=== PATIENT | female | born 1960 | race Caucasian/White ===

== ENCOUNTER 2023-03-05 07:26 | Outpatient (CLI) | payer OTHER ==
[2023-03-05 12:10] LABS: BASOPHILS # (AUTO) 0.1 10^3/uL (0.0-0.1); BASOPHILS % (AUTO) 1.2 %; EOSINOPHILS # (AUTO) 0.3 10^3/uL (0.0-0.7); EOSINOPHILS % (AUTO) 4.3 %; HCT - HEMATOCRIT 40.2 % (37.0-47.0); HGB - HEMOGLOBIN 12.8 g/dL (12.0-16.0); LYMPHOCYTES # (AUTO) 2.1 10^3/uL (1.5-3.5); LYMPHOCYTES % (AUTO) 34.5 %; MEAN CORPUSCULAR HEMOGLOBIN 28.8 pg (27.0-31.0); MEAN CORPUSCULAR HGB CONC 31.8 g/dL (32.0-36.0); MEAN CORPUSCULAR VOLUME 90.5 fL (81.0-99.0); MEAN PLATELET VOLUME 11.8 fL (7.9-10.8); MONOCYTES # (AUTO) 0.4 10^3/uL (0.0-1.0); MONOCYTES % (AUTO) 7.2 %; NEUTROPHILS # (AUTO) 3.2 10^3/uL (1.5-6.6); NEUTROPHILS % (AUTO) 52.6 %; PLT - PLATELET COUNT 310 10^3/uL (130-450); RED BLOOD COUNT 4.44 10^6/uL (4.20-5.40); RED CELL DISTRIBUTION WIDTH 14.4 % (12.0-15.0); WHITE BLOOD COUNT 6.1 x10^3/uL (4.8-10.8)
[2023-03-05 12:13] LABS: HCG UR QUAL NEGATIVE
[2023-03-05 12:23] LABS: ALBUMIN 4.4 g/dL (3.2-5.5); ALBUMIN/GLOBULIN RATIO 1.6 (1.0-2.2); BILIRUBIN,TOTAL 0.3 mg/dL (0.2-1.0); CALCIUM 10.1 mg/dL (8.5-10.3); CREATININE 0.8 mg/dL (0.6-1.3); POTASSIUM 3.6 mmol/L (3.5-4.5); TOTAL PROTEIN 7.1 g/dL (6.4-8.9)
== END 2023-03-05 07:27 | disposition home or self-care (01) ==
LOC: LAB.N 07:26
PROVIDERS: ATTEND Obstetrics & Gynecology
DX: Z01.812 Encounter for preprocedural laboratory examination (principal); N95.0 Postmenopausal bleeding
CPT/HCPCS: 36415; 80053; 81025; 85025

== ENCOUNTER 2023-03-10 09:51 | Day surgery (SDC) | payer OTHER ==
[2023-03-10] MEDS ORDERED: LACTATED RINGERS 1,000 ML IV ONE (10:03)
--- NOTE | 2023-03-10 12:08 | ANESTHESIA ---
Pre-Anesthesia VS, & Labs - Diagnosis post menopausal bleeding - Procedure D&C, hysteroscopy Vital Signs: Temp Pulse Resp BP Pulse Ox O2 Flow Rate 36.6 C 64 16 136/75 H 98 03/10/23 10:04 03/10/23 10:04 03/10/23 10:04 03/10/23 10:04 03/10/23 10:04 Height: 5 ft 6 in Weight (kg): 58.1 kg Body Mass Index: 20.7 BMI Classification: Normal - NPO >8 hours - Is Patient ?: No - Lab Results Lab results reviewed: Yes Home Medications and Allergies Home Medications: Ambulatory Orders Calcium Carbonate [Calcium] 600 mg PO DAILY 03/03/23 Cholecalciferol [Vitamin D3] 25 mcg PO DAILY 03/03/23 Lactobacillus Combination No.4 [Probiotic] 1 each PO DAILY 03/03/23 Lisinopril [Zestril] 20 mg PO DAILY 03/03/23 Multivitamin 1 each PO DAILY 03/03/23 Vitamin B Complex Vit C No.3 [B Complex with Vitamin C] 1 each PO DAILY 03/03/23 Calcium Carbonate [Calcium] 600 mg PO DAILY 03/03/23 Cholecalciferol [Vitamin D3] 25 mcg PO DAILY 03/03/23 Lactobacillus Combination No.4 [Probiotic] 1 each PO DAILY 03/03/23 Lisinopril [Zestril] 20 mg PO DAILY 03/03/23 Multivitamin 1 each PO DAILY 03/03/23 Vitamin B Complex Vit C No.3 [B Complex with Vitamin C] 1 each PO DAILY 03/03/23 Allergies/Adverse Reactions: Allergies Allergy/AdvReac Type Severity Reaction Status Date / Time bacitracin Allergy Rash Verified 03/03/23 15:03 [From Neosporin ([id number])] neomycin Allergy Rash Verified 03/03/23 15:03 [From Neosporin ([id number])] polymyxin B Allergy Rash Verified 03/03/23 15:03 [From Neosporin ([id number])] aspirin AdvReac Nausea Verified 03/03/23 15:02 oxycodone AdvReac severe Verified 03/03/23 15:02 nausea, dizziness chocolate Allergy migraine Uncoded 03/03/23 15:04 Anes History & Medical History - Anesthetic History Anesthesia Complications: reports: Post-Operative Nausea/Vomiting Family history of Anesthesia Complications: Denies Family history of Malignant Hyperthermia: Denies - Medical History Cardiovascular: reports: Hypertension, Other Pulmonary: reports: None Gastrointestinal: reports: None Urinary: reports: None Musculoskeletal: reports: Osteoarthritis Endocrine/Autoimmune: reports: None Skin: reports: None - Surgical History General: reports: Colonoscopy Gynecologic: reports: Dilation and currettage, Tubal ligation Orthopedic: reports: Other Exam General: Alert, Oriented x3, Cooperative Dental: WNL Mouth Openin Fingerbreadth Neck Mobility: Normal Mallampati classification: II Thyromental Distance: 4-6 cm Respiratory: Lungs clear, Normal breath sounds, No respiratory distress Cardiovascular: Regular rate Neurological: Normal speech Mental/Cognitive Status: Alert/Oriented X3, Normal for patient Cognitive Status: Within normal limits Plan Anesthesia Type: General, MAC, Total IV Consent for Procedure(s) Verified and Reviewed: Yes Code Status: Attempt Resuscitation ASA classification: 2-Mild systemic disease Is this case an emergency?: No
[2023-03-10] MEDS ORDERED: fentaNYL 100 MCG/2 ML VIAL ONE (12:13)
[2023-03-10] MEDS ORDERED: MIDAZOLAM 2 MG/2 ML VIAL ONE (12:13)
[2023-03-10] MEDS ORDERED: PROPOFOL 200 MG/20 ML VIAL IVP ONE (12:15)
[2023-03-10] MEDS ORDERED: DEXAMETHASONE 4 MG/ML VIAL ONE (12:51)
[2023-03-10] MEDS ORDERED: ONDANSETRON 4 MG/2 ML VIAL ONE (12:51)
[2023-03-10] MEDS ORDERED: METOCLOPRAMIDE 10 MG/2 ML VIAL IVP PRN (13:01)
[2023-03-10] MEDS ORDERED: ONDANSETRON 4 MG/2 ML VIAL IVP PRN (13:01)
[2023-03-10] MEDS ORDERED: HYDROmorphone 0.5 MG/0.5 ML SYRINGE IVP PRN (13:01)
[2023-03-10] MEDS ORDERED: ePHEDrine 50 MG/ML VIAL IVP PRN (13:01)
[2023-03-10] MEDS ORDERED: fentaNYL 100 MCG/2 ML VIAL IVP PRN (13:01)
[2023-03-10] MEDS ORDERED: NALOXONE 0.4 MG/ML VIAL IVP PRN (13:01)
[2023-03-10] MEDS ORDERED: ATROPINE ABBOJECT 1 MG/10 ML SYRINGE IVP PRN (13:01)
[2023-03-10] MEDS ORDERED: miSOPROStoL 200 MCG TABLET ONE (13:19)
[2023-03-10] MEDS ORDERED: GLYCOPYRROLATE 1 MG/5 ML VIAL ONE (13:21)
[2023-03-10] MEDS ORDERED: LACTATED RINGERS 600 ML IV ONE (13:40)
--- NOTE | 2023-03-10 13:43 | OPERATIVE REPORT ---
Operative Report - General Procedure Date: 03/10/23 Planned Procedure: dilation, hysteroscopy, curetage, possible polypectomy Pre-Op Diagnosis: post menopausal bleeding, thickened endometrium, suspect endometrial polyp Procedure Performed: dilation of cervix, hysteroscopy that revealed uterine perforation, of procedure Post Op Diagnosis: same as above - Procedure Note Primary Surgeon: clark Anesthesia Provider: ann santana Anesthesia Technique: General LMA Pathology: none IV Fluids (mL): 500 Estimated Blood Loss (mL): 5 Urine Output (mL): 0 Findings: found ourselves in the pelvis instead of the uterus Complications: uterine perforation - Other Other Information/Narrative: OPERATIVE NOTE Pre-operative diagnosis: 1. Post menopausal bleeding 2. Thickened endometrium 3. suspect Endometrial polyp Procedure: Attempted: Diagnostic hysteroscopy, dilation and curettage, polypectomy Actual procedure: dilation of false channel through cervix, uterine perforation. Post-operative diagnosis: LILIBETH Surgeon: Clark Payloader Machine Operator: None Anesthesia: LMA Findings: EUA: small uterus, no adnexal masses, normal cervix Speculum: normal vagina, normal cervix Hysteroscope: tunnel into pelvis, yellow of epiploica visualized. Specimen: none Complications: Uterine perforation EBL: minimal Hysteroscopic fluid in: 900 Hysteroscopic fluid out: 300 UOP: none, pt voided prior to case Dispo: Pt to PACU in stable condition Procedure in detail: After risks benefits and alternatives, as well as indication for procedure and anticipated post-operative recovery course, were discussed with the patient informed consent was obtained and patient was taken to the operating theater where general anesthesia with LMA was administered without complication. Pt placed in dorsal lithotomy position, SCDs in place and running, and bimanual exam revealed the aforementioned findings. Seth speculum placed in posterior vagina, and anterior lip of cervix grasped with ring forces, then single tooth, then posterior lip grasped with single tooth. Cervix dilated to accomodate 5.5mm hysteroscope. hysteroscope then entered without difficulty and it became apparent that instead of dilating the cervix we had created a false passage / uterine perforation. Suspect that it is on the posterior uterine wall, near to the internal os. aforementioned findings noted - being bowel. hysteroscope removed. Case aborted. Will check CBC in PACU and another CBC after 2-4 hours. All counts correct. Pt awaked from anesthesia. Pt to PACU in stable condition. Events of procedure discussed with patient. All questions answered.
[2023-03-10] MEDS ORDERED: LACTATED RINGERS 1,000 ML IV SCH (14:00)
[2023-03-10 14:01] LABS: HCT - HEMATOCRIT 41.2 % (37.0-47.0); HGB - HEMOGLOBIN 13.4 g/dL (12.0-16.0); MEAN CORPUSCULAR HEMOGLOBIN 29.1 pg (27.0-31.0); MEAN CORPUSCULAR HGB CONC 32.5 g/dL (32.0-36.0); MEAN CORPUSCULAR VOLUME 89.4 fL (81.0-99.0); MEAN PLATELET VOLUME 10.8 fL (7.9-10.8); RED BLOOD COUNT 4.61 10^6/uL (4.20-5.40); RED CELL DISTRIBUTION WIDTH 14.6 % (12.0-15.0)
--- NOTE | 2023-03-10 14:06 | ANESTHESIA POST OP EVALUATION ---
Anesthesia Post Eval - Post Anesthesia Eval Vitals: Last Vital Signs Temp 36.4 C L 03/10/23 14:00 Pulse 80 03/10/23 14:00 Resp 18 03/10/23 14:00 BP 157/88 H 03/10/23 14:00 Pulse Ox 93 03/10/23 14:00 O2 Flow Rate CV Function Including HR & BP: Stable Pain Control: Satisfactory Nausea & Vomiting: Negative Mental Status: Baseline Respiratory Status: Airway Patent Hydration Status: Satisfactory Anesthesia Complications: None - Other Details/Therapies Other Details/Therapies: Drawing series CBC 2 hours apart to assess for possible bleeding r/t probable perforation.
[2023-03-10] MEDS ORDERED: ACETAMINOPHEN 500 MG TABLET PO STA (14:16)
[2023-03-10 15:11] VITALS: BP 158/88; O2SAT 97
[2023-03-10 15:17] LABS: HCT - HEMATOCRIT 42.1 % (37.0-47.0); HGB - HEMOGLOBIN 13.5 g/dL (12.0-16.0); MEAN CORPUSCULAR HEMOGLOBIN 28.9 pg (27.0-31.0); MEAN CORPUSCULAR HGB CONC 32.1 g/dL (32.0-36.0); MEAN CORPUSCULAR VOLUME 90.1 fL (81.0-99.0); MEAN PLATELET VOLUME 10.5 fL (7.9-10.8); RED BLOOD COUNT 4.67 10^6/uL (4.20-5.40); RED CELL DISTRIBUTION WIDTH 14.6 % (12.0-15.0); WHITE BLOOD COUNT 7.7 x10^3/uL (4.8-10.8)
== END 2023-03-10 09:52 | disposition home or self-care (01) ==
LOC: SDS 09:51
PROVIDERS: ATTEND Obstetrics & Gynecology
DX: N95.0 Postmenopausal bleeding (principal); R93.89 Abnormal findings on diagnostic imaging of other specified body structures; I10 Essential (primary) hypertension; N99.71 Accidental puncture and laceration of a genitourinary system organ or structure during a genitourinary system procedure; S37.63XA Laceration of uterus, initial encounter; Y65.8 Other specified misadventures during surgical and medical care; Y92.234 Operating room of hospital as the place of occurrence of the external cause
CPT/HCPCS: 36415; 58558; 85027; A9270; J7120

== ENCOUNTER 2023-04-21 07:10 | Outpatient (CLI) | payer OTHER ==
[2023-04-21 11:54] LABS: HCT - HEMATOCRIT 38.7 % (37.0-47.0); HGB - HEMOGLOBIN 12.7 g/dL (12.0-16.0); MEAN CORPUSCULAR HGB CONC 32.8 g/dL (32.0-36.0); MEAN CORPUSCULAR VOLUME 88.4 fL (81.0-99.0); RED BLOOD COUNT 4.38 10^6/uL (4.20-5.40); RED CELL DISTRIBUTION WIDTH 14.4 % (12.0-15.0); WHITE BLOOD COUNT 5.8 x10^3/uL (4.8-10.8)
[2023-04-21 11:56] LABS: BILIRUBIN,URINE NEGATIVE (NEGATIVE); GLUCOSE, URINE (UA) NEGATIVE (NEGATIVE); KETONES,URINE (UA) NEGATIVE (NEGATIVE); LEUKOCYTE ESTERASE, URINE NEGATIVE (NEGATIVE); NITRITE,URINE NEGATIVE (NEGATIVE); OCCULT BLOOD,URINE NEGATIVE (NEGATIVE); PROTEIN,URINE NEGATIVE (NEGATIVE); UROBILINOGEN,URINE 0.2 (NORMAL) E.U./dL (NORMAL)
[2023-04-21 12:05] LABS: BACTERIA,URINE None Seen /HPF (None Seen); CLARITY,URINE CLEAR (CLEAR); RBC,URINE None Seen /HPF (0-5); SQUAMOUS EPITHELIAL CELL,UR NONE SEEN (<= Few); WBC,URINE 0-3 /HPF (0-5)
== END 2023-04-21 07:11 | disposition home or self-care (01) ==
LOC: LAB.N 07:10
PROVIDERS: ATTEND Obstetrics & Gynecology
DX: Z01.812 Encounter for preprocedural laboratory examination (principal); R93.89 Abnormal findings on diagnostic imaging of other specified body structures; S37.69XA Other injury of uterus, initial encounter; N95.0 Postmenopausal bleeding
CPT/HCPCS: 36415; 81001; 85027

== ENCOUNTER 2023-04-23 08:17 | Day surgery (SDC) | payer OTHER ==
[2023-04-23] MEDS ORDERED: LACTATED RINGERS 1,000 ML IV ONE ×2 (08:47→11:58)
--- NOTE | 2023-04-23 09:16 | ANESTHESIA ---
Pre-Anesthesia VS, & Labs - Diagnosis thickened endometrium, s/p uterine peforation 1 month ago in same procedure - Procedure hysteroscopy D&C, polypectomy under US Vital Signs: Temp Pulse Resp BP Pulse Ox O2 Flow Rate 36.2 C L 61 18 150/79 H 100 0 04/23/23 08:47 04/23/23 08:47 04/23/23 08:47 04/23/23 08:47 04/23/23 08:47 04/23/23 08:47 Height: 5 ft 6 in Weight (kg): 58.8 kg Body Mass Index: 20.9 BMI Classification: Normal - NPO >8 hours - Is Patient ?: No - Lab Results Lab results reviewed: Yes Home Medications and Allergies Calcium Carbonate [Calcium] 600 mg PO DAILY 03/03/23 Cholecalciferol [Vitamin D3] 25 mcg PO DAILY 03/03/23 Lactobacillus Combination No.4 [Probiotic] 1 each PO DAILY 03/03/23 Lisinopril [Zestril] 20 mg PO DAILY 03/03/23 Multivitamin 1 each PO DAILY 03/03/23 Vitamin B Complex Vit C No.3 [B Complex with Vitamin C] 1 each PO DAILY 03/03/23 Allergies/Adverse Reactions: Allergies Allergy/AdvReac Type Severity Reaction Status Date / Time bacitracin Allergy Rash Verified 04/23/23 08:31 [From Neosporin ([id number])] neomycin Allergy Rash Verified 04/23/23 08:31 [From Neosporin ([id number])] polymyxin B Allergy Rash Verified 04/23/23 08:31 [From Neosporin ([id number])] aspirin AdvReac Nausea Verified 04/23/23 08:31 oxycodone AdvReac severe Verified 04/23/23 08:31 nausea, dizziness chocolate Allergy migraine Uncoded 04/23/23 08:31 Anes History & Medical History - Anesthetic History Anesthesia Complications: reports: Post-Operative Nausea/Vomiting (has used zofran for every GA, no N/V since first surgery) Family history of Anesthesia Complications: Denies Family history of Malignant Hyperthermia: Denies - Medical History Cardiovascular: reports: Hypertension, Other Pulmonary: reports: None Gastrointestinal: reports: None Urinary: reports: None Musculoskeletal: reports: Osteoarthritis Endocrine/Autoimmune: reports: None Skin: reports: None History of Cancer?: No - Surgical History General: reports: Colonoscopy Gynecologic: reports: Dilation and currettage, Tubal ligation Orthopedic: reports: Other Exam General: Alert, Oriented x3, Cooperative Dental: WNL Mouth Openin Fingerbreadth Neck Mobility: Normal Mallampati classification: II Respiratory: Lungs clear, Normal breath sounds, No respiratory distress Cardiovascular: Regular rate Neurological: Normal speech Mental/Cognitive Status: Alert/Oriented X3, Normal for patient Plan Anesthesia Type: General Consent for Procedure(s) Verified and Reviewed: Yes Code Status: Attempt Resuscitation ASA classification: 2-Mild systemic disease Is this case an emergency?: No
[2023-04-23] MEDS ORDERED: ONDANSETRON 4 MG/2 ML VIAL IVP PRN (09:17)
[2023-04-23] MEDS ORDERED: METOCLOPRAMIDE 10 MG/2 ML VIAL IVP PRN (09:17)
[2023-04-23] MEDS ORDERED: ATROPINE ABBOJECT 1 MG/10 ML SYRINGE IVP PRN (09:17)
[2023-04-23] MEDS ORDERED: ePHEDrine 50 MG/ML VIAL IVP PRN (09:17)
[2023-04-23] MEDS ORDERED: HYDROmorphone 0.5 MG/0.5 ML SYRINGE IVP PRN (09:17)
[2023-04-23] MEDS ORDERED: fentaNYL 100 MCG/2 ML VIAL IVP PRN (09:17)
[2023-04-23] MEDS ORDERED: NALOXONE 0.4 MG/ML VIAL IVP PRN (09:17)
[2023-04-23] MEDS ORDERED: MORPHINE 2 MG/ML CARPUJECT IVP PRN (09:17)
[2023-04-23 09:22] LABS: ALBUMIN 4.3 g/dL (3.2-5.5)
[2023-04-23 09:24] LABS: ALBUMIN/GLOBULIN RATIO 1.5 (1.0-2.2); BILIRUBIN,TOTAL 0.4 mg/dL (0.2-1.0); CALCIUM 9.4 mg/dL (8.5-10.3); CREATININE 0.8 mg/dL (0.6-1.3); POTASSIUM 3.6 mmol/L (3.5-4.5); TOTAL PROTEIN 7.1 g/dL (6.4-8.9)
[2023-04-23] MEDS ORDERED: LACTATED RINGERS 1,000 ML IV SCH (10:00)
[2023-04-23] MEDS ORDERED: SILVER NITRATE APPLICATOR TOP ONE ×2 (10:05→10:52)
[2023-04-23] MEDS ORDERED: PROPOFOL 200 MG/20 ML VIAL IVP ONE (10:07)
[2023-04-23] MEDS ORDERED: MIDAZOLAM 2 MG/2 ML VIAL ONE (10:07)
[2023-04-23] MEDS ORDERED: fentaNYL 100 MCG/2 ML VIAL ONE (10:07)
[2023-04-23] MEDS ORDERED: ONDANSETRON 4 MG/2 ML VIAL ONE (10:41)
[2023-04-23] MEDS ORDERED: DEXAMETHASONE 4 MG/ML VIAL ONE (10:41)
[2023-04-23] MEDS ORDERED: KETOROLAC 15 MG/ML VIAL ONE (12:00)
--- NOTE | 2023-04-23 12:09 | Ultrasound Report ---
PROCEDURE: Pelvic Limited INDICATIONS: in OR TECHNIQUE: Real-time transabdominal scanning was performed of the pelvic organs, with image documentation. COMPARISON: None. FINDINGS: Limited sonographic imaging of the uterus was performed intraoperatively. Endometrial stripe measures 7 mm diameter. Ovaries were not identified. IMPRESSION: Intraoperative imaging as above. Reviewed by: Ayden Saavedra MD on 04/23/2023 12:07 PM [facility] Approved by: Ayden Saavedra MD on 04/23/2023 12:07 PM [facility] Station ID: [id number]
[2023-04-23] MEDS ORDERED: ACETAMINOPHEN 500 MG TABLET PO ONE ×2 (12:52→12:53)
[2023-04-23 12:56] VITALS: BP 149/90; O2SAT 97
--- NOTE | 2023-04-23 13:02 | ANESTHESIA POST OP EVALUATION ---
Anesthesia Post Eval - Post Anesthesia Eval Vitals: Last Vital Signs Temp 36.4 C L 04/23/23 12:46 Pulse 74 04/23/23 12:46 Resp 16 04/23/23 12:46 BP 149/90 H 04/23/23 12:46 Pulse Ox 97 04/23/23 12:46 O2 Flow Rate 0 04/23/23 08:47 CV Function Including HR & BP: Stable Pain Control: Satisfactory Nausea & Vomiting: Negative Mental Status: Baseline Respiratory Status: Airway Patent Hydration Status: Satisfactory Anesthesia Complications: None
--- NOTE | 2023-04-23 13:03 | OPERATIVE REPORT ---
Operative Report - General Procedure Date: 04/23/23 - Other Other Information/Narrative: OPERATIVE NOTE Pre-operative diagnosis: 1. Post Menopausal Bleeding 2. Thickened endometrium 3. h/o uterine perforation with prior hysteroscopy Procedure: Diagnostic hysteroscopy under ultrasound guidance, dilation and curettage, polypectomy Post-operative diagnosis: LILIBETH Surgeon: Clark Assembler Faucets: Glen for assistance with retraction and visualization Anesthesia: LMA Findings: EUA: small uterus, no adnexal masses, normal cervix, lichen apparent posterior fornyx Speculum: normal vagina, normal cervix, atophy Ultrasound: affirms small uterus Hysteroscope: false passage seen hysteroscope removed slowly until correct cervical passage seen, and then used guide wire to insert the hysteroscope in the correct endocervical path then, polyp seen on anterior uterine wall, and normal ostea B/L, atophy present. attempted curretage with myosure, scant curretage done and possible 2'2 atrophy. normal fundus polyp removed with myosure normal endocervical canal Specimen: endometrial curettage & polyp Complications: None apparent EBL: minimal Hysteroscopic fluid deficit: 600cc NS UOP: none, pt voided prior to case Dispo: Pt to PACU in stable condition Procedure in detail: After risks benefits and alternatives, as well as indication for procedure and anticipated post-operative recovery course, were discussed with the patient informed consent was obtained and patient was taken to the operating theater where general anesthesia with LMA was administered without complication. Pt placed in dorsal lithotomy position, SCDs in place and running, and bimanual exam revealed the aforementioned findings. Seth speculum placed in posterior vagina, and anterior lip of cervix grasped with tenaculum. Cervix dilated to accomodate 5.5mm hysteroscope. hysteroscope then entered without difficulty. aforementioned findings noted, hysteroscope repositined away from false passage and into endocervical canal under direct visualization. polyp and ostea seen. polyp forceps used to attempt to remove polyp, unsuccessful. hysteroscope exchanged for myosure. Polyp then successfully removed in entirety, and curretage done with some success with myosure. Myosure and all instruments removed from vagina. Silver nitrate applied on tenaculum site. All counts correct. Pt awaked from anesthesia. Pt to PACU in stable condition.
== END 2023-04-23 08:18 | disposition home or self-care (01) ==
LOC: SDS 08:17
PROVIDERS: ATTEND Obstetrics & Gynecology
PROC: 0UB98ZZ Excision of Uterus, Via Natural or Artificial Opening Endoscopic (ICD-10-PCS; principal; 2023-04-23 09:45)
DX: N95.0 Postmenopausal bleeding (principal); R93.89 Abnormal findings on diagnostic imaging of other specified body structures; N84.0 Polyp of corpus uteri; I10 Essential (primary) hypertension
CPT/HCPCS: 36415; 58558; 76857; 80053; A9270; J7120

== ENCOUNTER 2023-12-04 12:24 | Outpatient (CLI) | payer MEDICARE, OTHER ==
--- NOTE | 2023-12-04 16:40 | DEXA Report ---
PROCEDURE: Dexa Spine and/or Hip INDICATIONS: POST MENOPAUSAL TECHNIQUE: Dual energy x-ray absorptiometry (DXA) was performed on a Conversion Sound System. Regions measur ed are the AP Spine, femoral neck, and if needed forearm. COMPARISON: None FINDINGS: Lumbar Spine: Bone Mineral Density: 1.014 g/cm/cm,T score: -1.4. Left Femoral Neck: Bone Mineral Density: 0.826 g/cm/cm, T score: -1.5. Left Hip: Bone Mineral Density: 0.829 g/cm/cm,T score: -1.4. FRAX risk factors: 10 year risk of major osteoporotic fracture: 10.6% major osteoporotic fracture = hip, clinical vertebral, proximal humerus, distal forearm 10 year risk of hip fracture: 1.4% (T score greater or equal to -1.0: NORMAL) (T score from -1.1 to -2.4: OSTEOPENIA) (T score less than or equal to -2.5 to: OSTEOPOROSIS) Impression: By WHO criteria, this patient has low bone density (osteopenia). Patients with diagnosis of osteoporosis or osteopenia should have regular bone mineral density assess ment. For those eligible for Medicare, routine testing is allowed once every 2 years. Testing frequ ency can be increased for patients who have rapidly progressing disease or for those who are receivin g medical therapy to restore bone mass. Reviewed by: Alex Wyatt MD on 12/04/2023 4:39 PM PDT Approved by: Alex Wyatt MD on 12/04/2023 4:39 PM PDT Station ID: [id number]
== END 2023-12-04 12:25 | disposition home or self-care (01) ==
LOC: DI 12:24
PROVIDERS: ATTEND Physician Assistant
DX: M85.89 Other specified disorders of bone density and structure, multiple sites (principal); Z78.0 Asymptomatic menopausal state